=== PATIENT | female | born 1965 | race Caucasian/White ===

== ENCOUNTER → 2020-11-24 | Outpatient (CLI) | payer OTHER ==
[~2020-11-24] MED LIST: AMOX500 PO; CLON1 PO; ESCI20 PO; PROCODE120 PO; QUET200 PO; RANI150 PO
[2020-11-27 12:07] LABS: CHLAMYDIA BY NAA Negative (Negative); GONOCOCCUS BY NAA Negative (Negative); TRICH VAG BY NAA Negative (Negative)
[2020-11-28 15:10] LABS: HPV 16 Negative (Negative); HPV 18 Negative (Negative); HPV OTHER HR TYPES Negative (Negative)
== END | disposition home or self-care (01) ==
LOC: LAB SHORT 14:00 → LAB 14:00
PROVIDERS: Student in an Organized Health Care Education/Training Program
DX: Z12.4 Encounter for screening for malignant neoplasm of cervix (principal); Z11.3 Encounter for screening for infections with a predominantly sexual mode of transmission
CPT/HCPCS: 87491; 87591; 87624; 87661; G0123

== ENCOUNTER → 2022-01-23 | Outpatient (CLI) | payer OTHER ==
[2022-01-23 18:53] LABS: BASOPHILS ABSOLUTE AUTO 0.08 K/mm3 (0.00-0.23); BASOPHILS PERCENT AUTO 1 % (0-2); EOSINOPHILS PERCENT AUTO 4 % (0-6); Hematocrit 42.3 % (33.0-51.0); Hemoglobin 14.2 g/dL (11.5-16.0); IMMATURE GRAN ABSOLUTE AUTO 0.02 K/mm3 (0.00-0.10); IMMATURE GRAN PERCENT AUTO 0 % (0-1); LYMPHOCYTES ABSOLUTE AUTO 2.84 K/mm3 (0.84-5.20); LYMPHOCYTES PERCENT AUTO 37 % (21-46); MONOCYTES ABSOLUTE AUTO 0.35 K/mm3 (0.16-1.47); MONOCYTES PERCENT AUTO 5 % (4-13); Mean Corpuscular HGB 30.5 pg (26.0-34.0); Mean Corpuscular HGB Conc 33.6 g/dL (31.5-36.5); Mean Corpuscular Volume 91 fL (80-100); Mean Platelet Volume 10.1 fL (9.1-12.4); NEUTROPHILS ABSOLUTE AUTO 4.09 K/mm3 (1.96-9.15); NEUTROPHILS PERCENT AUTO 53 % (41-73); Platelet Count 342 K/mm3 (150-400); RDW Coefficient Variation 12.3 % (11.7-14.2); RDW Standard Deviation 40.8 fL (35.1-46.3); Red Blood Cell Count 4.66 M/mm3 (3.80-5.20); White Blood Cell Count 7.68 K/mm3 (4.00-11.30)
[2022-01-23 19:14] LABS: Alanine Aminotransfer (ALT/SGP 27 U/L (12-78); Albumin, Blood 4.4 g/dL (3.4-5.0); Albumin/Globulin Ratio 1.4 (0.8-1.8); Alk Phos 39 U/L (50-136); Anion Gap 7 mmol/L (6-16); Aspartate Aminotrans (AST/SGOT 18 U/L (12-37); Bilirubin, Total 0.4 mg/dL (0.1-1.0); Blood Urea Nitrogen 9 mg/dL (8-24); Bun/Creatinine Ratio 9.7 (12.0-20.0); CHOL/HDL RATIO 2.8; CO2, Blood 27 mmol/L (21-32); Chloride, Blood 106 mmol/L (98-108); Cholesterol 127 mg/dL (50-200); Creatinine, Blood 0.93 mg/dL (0.40-1.00); Free Thyroxine 1.01 ng/dL (0.70-1.60); Globulin, Blood 3.2 g/dL (2.2-4.0); Glomerular Filtration Rate 73 (60-); Glucose, Blood 103 mg/dL (70-99); HDL Cholesterol 45 mg/dL (>39); LDL/HDL RATIO 1.4; Low Density Lipoprotein Chol 62 mg/dL (0-110); Potassium, Blood 4.2 mmol/L (3.5-5.5); Sodium, Blood 140 mmol/L (136-145); Total Protein, Blood 7.6 g/dL (6.4-8.2); Triglycerides 98 mg/dL (30-160); Very Low Density Lipoprot Chol 19 mg/dL (6-32)
== END | disposition home or self-care (01) ==
LOC: LAB SHORT 15:45
PROVIDERS: Family Medicine
DX: E78.5 Hyperlipidemia, unspecified (principal); F31.9 Bipolar disorder, unspecified; F41.8 Other specified anxiety disorders
CPT/HCPCS: 80053; 80061; 84439; 84443; 85025

== ENCOUNTER 2022-08-24 19:04 | Inpatient (IN) | payer OTHER ==
[~2022-08-24] VITALS: Ht 162.6 cm; Wt 73.8 kg
[2022-08-24 20:03] LABS: BASOPHILS ABSOLUTE AUTO 0.03 K/mm3 (0.00-0.23); BASOPHILS PERCENT AUTO 0 % (0-2); EOSINOPHILS ABSOLUTE AUTO 0.19 K/mm3 (0.00-0.68); EOSINOPHILS PERCENT AUTO 2 % (0-6); Hematocrit 44.1 % (33.0-51.0); Hemoglobin 15.5 g/dL (11.5-16.0); IMMATURE GRAN ABSOLUTE AUTO 0.02 K/mm3 (0.00-0.10); IMMATURE GRAN PERCENT AUTO 0 % (0-1); LYMPHOCYTES ABSOLUTE AUTO 2.78 K/mm3 (0.84-5.20); LYMPHOCYTES PERCENT AUTO 32 % (21-46); MONOCYTES ABSOLUTE AUTO 0.76 K/mm3 (0.16-1.47); MONOCYTES PERCENT AUTO 9 % (4-13); Mean Corpuscular HGB 30.5 pg (26.0-34.0); Mean Corpuscular HGB Conc 35.1 g/dL (31.5-36.5); Mean Corpuscular Volume 87 fL (80-100); Mean Platelet Volume 9.7 fL (9.1-12.4); NEUTROPHILS ABSOLUTE AUTO 5.05 K/mm3 (1.96-9.15); NEUTROPHILS PERCENT AUTO 57 % (41-73); Platelet Count 386 K/mm3 (150-400); RDW Coefficient Variation 11.9 % (11.7-14.2); RDW Standard Deviation 38.2 fL (35.1-46.3); Red Blood Cell Count 5.08 M/mm3 (3.80-5.20); White Blood Cell Count 8.83 K/mm3 (4.00-11.30)
[2022-08-24 20:18] LABS: Albumin, Blood 4.2 g/dL (3.4-5.0); Bilirubin, Total 0.5 mg/dL (0.1-1.0); Bun/Creatinine Ratio 14.4 (12.0-20.0); Calcium, Blood 10.7 mg/dL (8.5-10.1); Creatinine, Blood 0.91 mg/dL (0.40-1.00); Potassium, Blood 3.6 mmol/L (3.5-5.5); Total Protein, Blood 8.2 g/dL (6.4-8.2)
[2022-08-25 00:55] LABS: Source, Urine Clean Catch
[2022-08-25 00:58] LABS: Bilirubin, Urine Neg (Neg); Blood, Urine 1+ (Neg); Glucose Qualitative, Urine Neg (Neg); Ketones, Urine 1+ (Neg); Leukocyte Esterase, Urine 2+ (Neg); Nitrite, Urine Neg (Neg); Protein, Urine Neg (Neg); Urobilinogen, Urine NORM (Normal); pH, Urine 6.5 (5.0-8.0)
[2022-08-25 00:59] LABS: Appearance, Urine Hazy (Clear); Color, Urine Yellow (P-Yellow)
[2022-08-25 01:04] LABS: Amorphous Light (0-Heavy); Bacteria Few /hpf; Red Blood Cells, Urine 0-2 /hpf (0-2); Squamous Epithelial Cells Few /hpf (Few)
[2022-08-25] MEDS ORDERED: CLON2 PO (02:55)
[2022-08-25] MEDS ORDERED: PROP10 PO (02:55)
[2022-08-25] MEDS ORDERED: OLAN20 PO ×2 (03:00)
[2022-08-25] MEDS ORDERED: LITH300ER (03:01)
[2022-08-25] MEDS ORDERED: ZOCOR20 MG PO (05:14)
[2022-08-25 06:58] LABS: Lithium <0.20 mmol/L (0.60-1.20)
[2022-08-25 07:01] LABS: BASOPHILS ABSOLUTE AUTO 0.03 K/mm3 (0.00-0.23); BASOPHILS PERCENT AUTO 0 % (0-2); EOSINOPHILS ABSOLUTE AUTO 0.21 K/mm3 (0.00-0.68); EOSINOPHILS PERCENT AUTO 3 % (0-6); Hematocrit 38.9 % (33.0-51.0); Hemoglobin 13.6 g/dL (11.5-16.0); IMMATURE GRAN ABSOLUTE AUTO 0.02 K/mm3 (0.00-0.10); IMMATURE GRAN PERCENT AUTO 0 % (0-1); LYMPHOCYTES ABSOLUTE AUTO 2.38 K/mm3 (0.84-5.20); LYMPHOCYTES PERCENT AUTO 30 % (21-46); MONOCYTES ABSOLUTE AUTO 0.53 K/mm3 (0.16-1.47); MONOCYTES PERCENT AUTO 7 % (4-13); Mean Corpuscular HGB 30.8 pg (26.0-34.0); Mean Corpuscular Volume 88 fL (80-100); Mean Platelet Volume 10.2 fL (9.1-12.4); NEUTROPHILS ABSOLUTE AUTO 4.76 K/mm3 (1.96-9.15); NEUTROPHILS PERCENT AUTO 60 % (41-73); Platelet Count 298 K/mm3 (150-400); RDW Coefficient Variation 11.9 % (11.7-14.2); RDW Standard Deviation 39.1 fL (35.1-46.3); Red Blood Cell Count 4.42 M/mm3 (3.80-5.20); White Blood Cell Count 7.93 K/mm3 (4.00-11.30)
[2022-08-25 07:29] LABS: Albumin, Blood 3.6 g/dL (3.4-5.0); Albumin/Globulin Ratio 1.2 (0.8-1.8); Bilirubin, Total 0.4 mg/dL (0.1-1.0); Bun/Creatinine Ratio 14.7 (12.0-20.0); Calcium, Blood 9.2 mg/dL (8.5-10.1); Creatinine, Blood 0.82 mg/dL (0.40-1.00); Globulin, Blood 3.1 g/dL (2.2-4.0); Potassium, Blood 3.1 mmol/L (3.5-5.5); Total Protein, Blood 6.7 g/dL (6.4-8.2)
--- NOTE | 2022-08-25 19:48 | NUR ---
SHIFT SUMMARY- PT WAS ADMITTED LAST NIGHT THROUGH THE ED FOR SBO. CONSULT CALLED TO GEN SURG DR CHUNG. PT REQUESTING ICE CHIPS THIS MORNING PER DR MCGRATH ICE CHIPS AND PO MEDS ARE OK. PT HAS BEEN MEDICATED FOR PAIN WITH IV FENTANYL T/O THE SHIFT TODAY. THIS EVENING SHE WAS NOTED TO HAVE A LOWER SBP. PLACED A CALL TO DR MCGRATH AND WAS UNABLE TO REACH HER AT END OF SHIFT. PT STATED SHE TAKES HER ZYPREXA 40MG DOSE AT BEDTIME SO ADMINISTRATION TIME WAS CHANGED TO MATCH HER HOME MED SCHEDULE. SPOKE TO PHARMACY ABOUT THE DOSE, IT IS UNUSUALLY LARGE, PER PHARMACY THIS IS HER OUT PT DOSE ORDERED BY OLIVIA RUSSO. PT SEEMED TO BE A LITTLE ANXIOUS, HOWEVER SHE WAS CALM AAND APPEARED COMFORTABLE AT THE TIME OF BEDSIDE REPORT.
--- NOTE | 2022-08-26 04:18 | NUR ---
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 PATIENT EFFECTIVELY COMMUNICATES NEEDS. VSS. RR EVEN AND UNLABORED ON RA. NPO. NO BOWEL MOVEMENT OR FLATULENCE THIS SHIFT. BOWEL TONES REMAIN HYPOACTIVE THROUGHOUT ALL QUADRANTS, WITH SOME ACTIVITY HEARD IN THE RLQ. PAIN ASSESSED AND MEDICATED PER EMAR. NO ACUTE EVENTS THIS SHIFT. BED LOW AND LOCKED. CALL LIGHT WITHIN REACH. THIS RN WILL CONTINUE TO MONITOR.
[2022-08-26 06:00] LABS: Hematocrit 35.8 % (33.0-51.0); Mean Corpuscular HGB 30.8 pg (26.0-34.0); Mean Corpuscular HGB Conc 33.5 g/dL (31.5-36.5); Mean Corpuscular Volume 92 fL (80-100); Mean Platelet Volume 9.9 fL (9.1-12.4); Platelet Count 257 K/mm3 (150-400); RDW Coefficient Variation 12.4 % (11.7-14.2); RDW Standard Deviation 41.6 fL (35.1-46.3); Red Blood Cell Count 3.89 M/mm3 (3.80-5.20); White Blood Cell Count 7.51 K/mm3 (4.00-11.30)
[2022-08-26 06:57] LABS: Bilirubin, Total 0.6 mg/dL (0.1-1.0); Bun/Creatinine Ratio 13.5 (12.0-20.0); Calcium, Blood 8.8 mg/dL (8.5-10.1); Creatinine, Blood 0.81 mg/dL (0.40-1.00); Globulin, Blood 2.9 g/dL (2.2-4.0); Potassium, Blood 3.8 mmol/L (3.5-5.5); Total Protein, Blood 5.9 g/dL (6.4-8.2)
--- NOTE | 2022-08-26 09:47 | NUR ---
PT PASSED FLATTUS- UPON GIVING THE PT HER IV PPI PT WOKE SUDDENLY AND SAID "I FARTED TWICE!" SHE THEN FELL BACK ASLEEP. STILL NO STOOLS. PT DENIES PAIN IN THE ABDOMEN, STILL NO STOOLS. PT LITHIUM HELD AT THIS TIME FOR LETHARGY, UNABLE TO WAKE PT ENOUGH TO SAFELY TAKE MEDICATIONS. DR RENDON SAW THE PT PRIOR TO THIS EVENT AND IS AWARE OF THE PT LETHARGY.
--- NOTE | 2022-08-26 19:57 | NUR ---
SHIFT SUMMARY- PT WAS LETHARGIC THIS MORNING UNABLE TO WAKE ENOUGH TO TAKE ORAL MEDICATIONS. AT LUNCH TIME SHE WOKE AND ASKED FOR HER CLEAR LIQUID TRAY AND PAIN MEDS. ENCOURAGED HER TO EAT BEFORE PAIN MEDS. SHE ATE THEN WAS MEDICATED FOR PAIN, THEN WAS AGAIN TOO TIRED TO ADMINISTER PO MEDICATIONS TO. SHE DID NOT GET HER AM DOSE OF LITHIUM, D/T INABILITY TO SWALLOW. NIGHT RN IS AWARE. IV HAS LR RUNNING AT 125ML/HR THIS EVENING. AT SHIFT CHANGE THE PT IS SLEEPING SOUNDLY AND OPEN MOUTHED SNORING. NIGHT RN AWARE OF THE PT INCREASED LETHARGY T/O THE DAY, BED ALARM SHOULD BE USED FOR PT SAFETY UNTIL SHE IS MORE ALERT.
--- NOTE | 2022-08-27 03:48 | NUR ---
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 PATIENT EFFECITVELY COMMUNICATES NEEDS. VSS. SPO2 >92% ON RA. NPO ADVANCED TO CLEAR LIQUIDS. PATIENT REPORTS TO BE PASSING FLATULENCE. NO BOWEL MOVEMENT. LR INFUSING @125ML/HR CONTINUOUSLY. PATIENT OBSERVED TO BE DROWSY. I BELIEVE THIS IS RELATED TO MEDICATION REGIMEN, IN WHICH PATIENT IS INSISTANT ON TAKING SCHEDULED AND PRN MEDICATIONS AT BEDTIME. NO ACUTE EVENTS THIS SHIFT. BED LOW AND LOCKED. BED ALARM ON RELATED TO DOWSINESS. CALL LIGHT WITHIN REACH. THIS RN WILL CONTINUE TO MONITOR.
[2022-08-27 06:04] LABS: BASOPHILS ABSOLUTE AUTO 0.03 K/mm3 (0.00-0.23); BASOPHILS PERCENT AUTO 1 % (0-2); EOSINOPHILS ABSOLUTE AUTO 0.35 K/mm3 (0.00-0.68); EOSINOPHILS PERCENT AUTO 6 % (0-6); Hematocrit 35.1 % (33.0-51.0); Hemoglobin 11.9 g/dL (11.5-16.0); IMMATURE GRAN ABSOLUTE AUTO 0.03 K/mm3 (0.00-0.10); IMMATURE GRAN PERCENT AUTO 1 % (0-1); LYMPHOCYTES ABSOLUTE AUTO 2.48 K/mm3 (0.84-5.20); LYMPHOCYTES PERCENT AUTO 43 % (21-46); MONOCYTES ABSOLUTE AUTO 0.44 K/mm3 (0.16-1.47); MONOCYTES PERCENT AUTO 8 % (4-13); Mean Corpuscular HGB 30.7 pg (26.0-34.0); Mean Corpuscular HGB Conc 33.9 g/dL (31.5-36.5); Mean Corpuscular Volume 91 fL (80-100); Mean Platelet Volume 9.9 fL (9.1-12.4); NEUTROPHILS ABSOLUTE AUTO 2.49 K/mm3 (1.96-9.15); NEUTROPHILS PERCENT AUTO 43 % (41-73); Platelet Count 278 K/mm3 (150-400); RDW Coefficient Variation 12.1 % (11.7-14.2); RDW Standard Deviation 40.4 fL (35.1-46.3); Red Blood Cell Count 3.88 M/mm3 (3.80-5.20); White Blood Cell Count 5.82 K/mm3 (4.00-11.30)
[2022-08-27 10:21] LABS: Bun/Creatinine Ratio 10.6 (12.0-20.0); Calcium, Blood 9.1 mg/dL (8.5-10.1); Creatinine, Blood 0.75 mg/dL (0.40-1.00); Potassium, Blood 3.7 mmol/L (3.5-5.5)
--- NOTE | 2022-08-27 18:20 | NUR ---
SHIFT SUMMARY: PATIENT A&OX4. CALM, PLEASANT AND COOPERATIVE C CARE. USES CALL LIGHT APPROPRIATELY AND ABLE TO ADVOCATE FOR HER NEEDS. PATIENT DENIES ABDOMINAL PAIN, BUT SLIGHLTLY TENDERNESS. DENIES N/V. PATIENT REPORTS PASSING FLATULENCE T/O THE DAY BUT NO BM THIS SHIFT. PATIENT WAS ON CL DIET FOR BREAKFAST AND FL FOR LUNCH AND DINNER TOLERATING WELL. DENIES ABDOMINAL PAIN, N/V AFTER MEALS. VITAL SIGNS REVIEWED. IV TO L FOREARM AND R AC WAS DC'D BY BODY AND FENDER WORKER 2 RAUL GALLAGHER. PATIENT DISCHARGE HOME. DISCHARGE INSTRUCTIONS PACKET GIVEN TO PATIENT. EDUCATE PATIENT REGARDING ADMITTING DX, S/S, TX AND NEW PRESCRIBED MEDICATIONS. PATIENT STATED UNDERSTANDING AND NO FURTHER QUESTIONS. RX WAS FAXED TO PATIENT PREFERRED PHARMACY ([facility]). ONE OF PATIENT PRESCRIPTION SIMVASTATIN SRENGTH WAS MISSING. CALLED DR. RENDON REGARDING THIS ISSUE. RECEIVED ORDER FROM , SIMVASTATIN 20 MG PO DAILY. THIS RN CALLED [facility] AND SPOKE TO THE PHARMACIST. ALL PATIENT PERSONAL BELONGINGS WERE SENT HOME WITH THE PATIENT. PATIENT LEFT THE ROOM AT AROUND 1820 TRANSPORTED VIA WHEELCHAIR BY BODY AND FENDER WORKER STAFF RAUL GALLAGHER TO PATIENT SPOUSE PRIVATE VEHICLE.
== END 2022-08-27 18:24 | disposition home or self-care (01) | DRG 389 ==
LOC: ER 19:04 → MEDS 08-25 03:45
PROVIDERS: Internal Medicine; Student in an Organized Health Care Education/Training Program; ADMIT Internal Medicine
DX: K91.31 Postprocedural partial intestinal obstruction (principal); E87.1 Hypo-osmolality and hyponatremia; E87.6 Hypokalemia; F31.9 Bipolar disorder, unspecified; E86.0 Dehydration; E78.5 Hyperlipidemia, unspecified; F41.9 Anxiety disorder, unspecified; K52.9 Noninfective gastroenteritis and colitis, unspecified; F17.210 Nicotine dependence, cigarettes, uncomplicated; Z90.721 Acquired absence of ovaries, unilateral; Z79.899 Other long term (current) drug therapy; Z87.59 Personal history of other complications of pregnancy, childbirth and the puerperium
CPT/HCPCS: 36415; 36416; 74022; 74177; 80048; 80053; 80178; 81001; 83690; 83880; 84703; 85025; 85027; 87086; 96365-59; 96375; 96376; 99285-25; A9270; C9113; J0696; J0780; J2405; J3010; J3480; J7030; J7120; Q9967

== ENCOUNTER → 2024-08-30 | Outpatient (CLI) | payer OTHER ==
[~2024-08-30] MED LIST changes: +CLON2 PO; +LITH300ER; +OLAN20 PO; +PROP10 PO; +ZOCOR20 MG PO
[2024-08-30 18:55] LABS: BASOPHILS ABSOLUTE AUTO 0.06 K/mm3 (0.00-0.23); BASOPHILS PERCENT AUTO 1 % (0-2); EOSINOPHILS ABSOLUTE AUTO 0.37 K/mm3 (0.00-0.68); EOSINOPHILS PERCENT AUTO 4 % (0-6); Hematocrit 40.9 % (33.0-51.0); Hemoglobin 13.5 g/dL (11.5-16.0); IMMATURE GRAN ABSOLUTE AUTO 0.01 K/mm3 (0.00-0.10); IMMATURE GRAN PERCENT AUTO 0 % (0-1); LYMPHOCYTES ABSOLUTE AUTO 2.41 K/mm3 (0.84-5.20); LYMPHOCYTES PERCENT AUTO 25 % (21-46); MONOCYTES ABSOLUTE AUTO 0.41 K/mm3 (0.16-1.47); MONOCYTES PERCENT AUTO 4 % (4-13); Mean Corpuscular HGB 30.6 pg (26.0-34.0); Mean Corpuscular Volume 93 fL (80-100); Mean Platelet Volume 10.4 fL (9.1-12.4); NEUTROPHILS ABSOLUTE AUTO 6.37 K/mm3 (1.96-9.15); NEUTROPHILS PERCENT AUTO 66 % (41-73); Platelet Count 366 K/mm3 (150-400); RDW Coefficient Variation 12.2 % (11.7-14.2); RDW Standard Deviation 42.3 fL (35.1-46.3); Red Blood Cell Count 4.41 M/mm3 (3.80-5.20); White Blood Cell Count 9.63 K/mm3 (4.00-11.30)
[2024-08-30 20:57] LABS: Alanine Aminotransfer (ALT/SGP 29 U/L (12-78); Albumin, Blood 4.4 g/dL (3.4-5.0); Albumin/Globulin Ratio 1.2 (0.8-1.8); Alk Phos 41 U/L (50-136); Anion Gap 8 mmol/L (3-11); Aspartate Aminotrans (AST/SGOT 13 U/L (12-37); Bilirubin, Total 0.3 mg/dL (0.1-1.0); Blood Urea Nitrogen 15 mg/dL (8-24); Bun/Creatinine Ratio 15.1 (12.0-20.0); CHOL/HDL RATIO 3.5; CO2, Blood 26 mmol/L (21-32); Calcium, Blood 10.9 mg/dL (8.5-10.1); Chloride, Blood 109 mmol/L (98-108); Cholesterol 173 mg/dL (50-200); Creatinine, Blood 0.99 mg/dL (0.40-1.00); Globulin, Blood 3.6 g/dL (2.2-4.0); Glomerular Filtration Rate 66 (60-); Glucose, Blood 101 mg/dL (70-99); HDL Cholesterol 50 mg/dL (>39); LDL/HDL RATIO 1.5; Low Density Lipoprotein Chol 76 mg/dL (0-110); Potassium, Blood 4.3 mmol/L (3.5-5.5); Sodium, Blood 139 mmol/L (136-145); Triglycerides 236 mg/dL (30-160); Very Low Density Lipoprot Chol 47 mg/dL (6-32)
== END | disposition home or self-care (01) ==
LOC: LAB 18:02 → LAB SHORT 18:02
PROVIDERS: Family Medicine
DX: I10 Essential (primary) hypertension (principal); E78.5 Hyperlipidemia, unspecified; R73.9 Hyperglycemia, unspecified
CPT/HCPCS: 80053; 80061; 83036; 84443; 85025

== ENCOUNTER → 2025-03-19 | Outpatient (CLI) | payer OTHER | LOC: LAB SHORT 16:25 → LAB 16:25 | DX: R30.9 Painful micturition, unspecified (principal) | CPT/HCPCS: 87077; 87086; 87185; 87186 ==

== ENCOUNTER 2025-04-04 23:43 | Emergency (ER) | payer OTHER ==
[~2025-04-04] VITALS: Ht 162.6 cm; Wt 72.6 kg
[2025-04-05 01:24] LABS: BASOPHILS ABSOLUTE AUTO 0.09 K/mm3 (0.00-0.23); BASOPHILS PERCENT AUTO 1 % (0-2); EOSINOPHILS ABSOLUTE AUTO 0.17 K/mm3 (0.00-0.68); EOSINOPHILS PERCENT AUTO 1 % (0-6); Hematocrit 41.3 % (33.0-51.0); Hemoglobin 14.2 g/dL (11.5-16.0); IMMATURE GRAN ABSOLUTE AUTO 0.04 K/mm3 (0.00-0.10); IMMATURE GRAN PERCENT AUTO 0 % (0-1); LYMPHOCYTES ABSOLUTE AUTO 2.64 K/mm3 (0.84-5.20); LYMPHOCYTES PERCENT AUTO 20 % (21-46); MONOCYTES ABSOLUTE AUTO 0.89 K/mm3 (0.16-1.47); MONOCYTES PERCENT AUTO 7 % (4-13); Mean Corpuscular HGB Conc 34.4 g/dL (31.5-36.5); Mean Corpuscular Volume 89 fL (80-100); NEUTROPHILS ABSOLUTE AUTO 9.32 K/mm3 (1.96-9.15); NEUTROPHILS PERCENT AUTO 71 % (41-73); NRBC ABSOLUTE 0.00 K/mm3 (0.00-0.02); NRBC Auto 0.0 /100 WBC (0.0-0.2); Platelet Count 404 K/mm3 (150-400); RDW Coefficient Variation 12.8 % (11.7-14.2); RDW Standard Deviation 41.6 fL (35.1-46.3)
[2025-04-05 01:48] LABS: Alanine Aminotransfer (ALT/SGP 26.0 U/L (12-78); Albumin, Blood 5.0 g/dL (3.4-5.0); Albumin/Globulin Ratio 1.2 (0.8-1.8); Anion Gap 11.0 mmol/L (3-11); Aspartate Aminotrans (AST/SGOT 15.0 U/L (12-37); Bilirubin, Total 0.6 mg/dL (0.1-1.0); Blood Urea Nitrogen 10.0 mg/dL (8-24); CO2, Blood 32.0 mmol/L (21-32); Calcium, Blood 11.2 mg/dL (8.5-10.1); Chloride, Blood 95.0 mmol/L (98-108); Creatinine, Blood 1.14 mg/dL (0.40-1.00); Globulin, Blood 4.0 g/dL (2.2-4.0); Glucose, Blood 108.0 mg/dL (70-99); Potassium, Blood 3.0 mmol/L (3.5-5.5); Sodium, Blood 135.0 mmol/L (136-145); Total Protein, Blood 9.0 g/dL (6.4-8.2)
[2025-04-05] MEDS ORDERED: NS 1,000 ML IV SCH ×2 (02:25→03:45)
[2025-04-05] MEDS ORDERED: Ondansetron HCl 2 MG / ML 2ML Vial IV ONE (02:25)
[2025-04-05] MEDS ORDERED: Diazepam 5 MG / ML 2ML SYR IV ONE (02:25)
[2025-04-05] MEDS ORDERED: Potassium Chl 20MEQ/Water100ML 100 ML IV SCH (03:00)
[2025-04-05 03:19] LABS: Magnesium, Blood 2.2 mg/dL (1.6-2.4)
[2025-04-05] MEDS ORDERED: Lidocaine 2% Viscous Soln 15 ML UDC PO ONE (04:55)
[2025-04-05] MEDS ORDERED: ONDA4ODT MM (05:43)
[2025-04-05] MEDS ORDERED: Metoclopramide HCl 5MG / ML 2ML Vial IV ONE (05:45)
[2025-04-05 06:50] VITALS: BP 102/63
[2025-04-05] MEDS ORDERED: KLOR-CON 1010 ME9 PO (07:10)
== END 2025-04-05 07:36 | disposition home or self-care (01) ==
LOC: ER 23:43
PROVIDERS: Emergency Medicine
DX: E86.0 Dehydration (principal); E87.6 Hypokalemia; Z59.89 Other problems related to housing and economic circumstances; Z79.899 Other long term (current) drug therapy; F17.200 Nicotine dependence, unspecified, uncomplicated
CPT/HCPCS: 74022; 80053; 83735; 85025; 93005; 93010; 96361; 96365; 96372; 96375; 99284; A9270; J2405; J2765; J3360; J3480; J7030

== ENCOUNTER 2025-06-19 08:35 | Emergency (ER) | payer OTHER ==
[~2025-06-19] VITALS: Ht 162.6 cm; Wt 72.6 kg
[~2025-06-19 08:35] MED LIST changes: +KLOR-CON 1010 ME9 PO; +ONDA4ODT MM
[2025-06-19 09:09] LABS: Source, Urine Clean Catch
[2025-06-19] MEDS ORDERED: [UNRECOGNIZED DRUG - CODE] PO (09:11)
[2025-06-19] MEDS ORDERED: Prozac40 MG PO (09:11)
[2025-06-19 09:19] LABS: Color, Urine Amber (P-Yellow); Glucose Qualitative, Urine Neg (Neg); Ketones, Urine Neg (Neg); Leukocyte Esterase, Urine 1+ (Neg); Protein, Urine Neg (Neg); Specific Gravity, Urine 1.010 (1.003-1.022); Urobilinogen, Urine 2+ (Normal)
[2025-06-19 09:22] LABS: Bilirubin, Urine 2+ (Neg)
[2025-06-19 09:24] LABS: Red Blood Cells, Urine Not Seen /hpf (0-2)
[2025-06-19] MEDS ORDERED: NITR100CA PO (09:26)
[2025-06-19 09:29] VITALS: BP 105/92
[2025-06-23] MEDS ORDERED: Flagyl500 MG PO (10:25)
== END 2025-06-19 09:31 | disposition home or self-care (01) ==
LOC: ER 08:35
PROVIDERS: Physician Assistant
DX: N39.0 Urinary tract infection, site not specified (principal); Z59.89 Other problems related to housing and economic circumstances; Z79.899 Other long term (current) drug therapy
CPT/HCPCS: 81001; 87086; 99283